=== PATIENT | male | born 1985 | race Caucasian/White ===

== ENCOUNTER 2025-02-22 15:06 | Emergency (ER) | payer BC, MEDICAID ==
[~2025-02-22] VITALS: Ht 177.8 cm; Wt 101.8 kg
[2025-02-22 15:47] LABS: MEAN PLATELET VOLUME 8.3 FL (7.4-10.4); RED CELL DISTRIBUTION WIDTH 13.8 % (11.5-14.5)
[2025-02-22 16:06] LABS: CREATININE 1.41 MG/DL (0.60-1.10); TOTAL CARBON DIOXIDE 25.0 MMOL/L (24-32); eCRCL 71 ML/MIN; eGFR 55 ML/MIN
--- NOTE | 2025-02-22 17:14 | Physician Documentation ---
History of Present Illness ~ Chief Complaint: Flank Pain Stated Complaint: ABD/BACK PAIN Time Seen by MD: 17:14 Primary Medical Doctor: none HPI 39-year-old male, presenting with urinary symptoms and flank pain He tells me that this morning when he woke up he was having some difficulty urinating. He felt like he had a frequent urge to go. He went to urgent Care, says they did a urinalysis and told him there was no infection. They gave him Flomax because they told him that it was probably an enlarged prostate. He has no history of an enlarged prostate or trouble with urination before Then later today he developed severe pain. He states that the pain is located in his right flank and radiates down to his right groin and testicles. It was so severe that he was nauseous and vomiting and sweating. He has never had any similar symptoms. No history of kidney stones. By time of my evaluation the symptoms have improved. He denies any significant pain at this time. He still feels like it is difficult to urinate. No fevers or other infectious symptoms Medication Reconciliation Allergies: Coded Allergies: No Known Allergies (Unverified , 03/21/09) Past Medical History Past Medical History: Anxiety Past Surgical History: no surgical history Lives with: Family Lives In: Home Occupation: employed Review of Systems Constitutional: Denies: fever Genitourinary: Reports: frequency, flank pain Physical Exam Vital Signs: Heart Rate: 118, Respiratory Rate: 18, BP: 167/105, Pulse Oximetry: 97, Weight: 101.820 Oxygen Flow Rate: 0 Physical Exam General: This is a pleasant and overall healthy-appearing young man, at bedside HEENT: Atraumatic, oropharynx is moist Heart: Mild tachycardic, appears regular Lungs: normal work of breathing, normal oxygen saturation on room air Abdomen: Soft, nondistended, nontender all quadrants including in the right lower quadrant and groin. Back: No CVA tenderness to percussion in the right Extremities: Warm and well-perfused Neuro: Alert and oriented Psychiatric: Calm and cooperative with exam Progress Results/Orders Results/Orders Completed Orders - EDELMIRA MARY MD Cbc/Diff (02/22/25 15:15) BMP (02/22/25 15:15) Lipase (02/22/25 15:15) CMP (02/22/25 15:15) Ua W/Microscopic, Cult If Ind (02/22/25 17:54) Vital Signs 02/22/25 02/22/25 02/22/25 15:11 17:31 17:39 Pulse 118 110 Resp 18 13 B/P (MAP) 167/105 154/105 (121) Pulse Ox 97 95 O2 Flow Rate 0 Laboratory Tests Test 02/22/25 15:32 02/22/25 17:54 White Blood Count 10.2 Red Blood Count 4.86 Hemoglobin 14.9 Hematocrit 42.6 Mean Corpuscular Volume 87.6 Mean Corpuscular Hemoglobin 30.6 Mean Corpuscular Hemoglobin Concent 34.9 Red Cell Distribution Width 13.8 Platelet Count 265 Mean Platelet Volume 8.3 Neutrophils (%) (Auto) 83.9 H Lymphocytes (%) (Auto) 12.2 L Monocytes (%) (Auto) 3.2 Eosinophils (%) (Auto) 0.1 Basophils (%) (Auto) 0.6 Neutrophils # (Auto) 8.5 H Lymphocytes # (Auto) 1.2 Monocytes # (Auto) 0.3 Eosinophils # (Auto) 0.0 Basophils # (Auto) 0.1 CBC Comment Sodium Level 139 Potassium Level 3.9 Chloride Level 104 Carbon Dioxide Level 25.0 Anion Gap 10 Blood Urea Nitrogen 15 Creatinine 1.41 H Estimated GFR/1.73 m2 55 BUN/Creatinine Ratio 10.6 Glucose Level 171 H Calcium Level 8.5 Total Bilirubin 0.5 Aspartate Amino Transf (AST/SGOT) 21 Alanine Aminotransferase (ALT/SGPT) 49 Alkaline Phosphatase 109 Total Protein 8.4 H Albumin 4.2 Globulin 4.2 Albumin/Globulin Ratio 1.0 L Lipase 37 Chemistry Comments Urine Specimen Description Non-specified Urine Color Yellow Urine Clarity Clear Urine pH 6.0 Urine Specific [place] 1.010 Urine Protein Negative Urine Glucose (UA) Negative Urine Ketones Negative Urine Occult Blood Large H Urine Nitrite Negative Urine Bilirubin Negative Urine Urobilinogen 0.2 Urine Leukocyte Esterase Negative Urine RBC 10-20 Urine WBC 0-4 Urine Squamous Epithelial Cells Few Urine Bacteria None seen Urine Mucus Few Urine Culture Indicated Not ind Volume Urine Centrifuged 10 ml Urine Comment Medical Decision Making Additional information obtaine: family Findings Further history obtained from the Diff Dx GI Bleed:Consideration: Include: Diverticulitis Diff Dx Pain:Considerations: Include: Urinary tract infection, Urolithiasis Diff Dx N/V/D:Considerations: Include: Urolithiasis Diff Dx Rectal:Considerations: Include: UTI Additional Comments The patient presents with urinary symptoms and severe flank pain. Per his history, this seems most likely to be a kidney stone. However, he currently is essentially asymptomatic, possibly indicating that he passed the stone. He still feels like it is difficult to urinate. Labs are unremarkable, except for kidney function possibly slightly elevated but no previous for comparison. Uri nalysis or hematuria but no infection. Later, the patient actually urinated the kidney stone out. Since he passed the stone, it seems reasonable for him to be discharged home with home care instructions for future stones. Departure Time of Disposition: 18:38 Disposition: 01 HOME / SELF CARE / HOMELESS Impression: Primary Impression: Renal colic Condition: Improved Discharge Instructions: Kidney Stones Referrals: NO PRIMARY CARE PROVIDER (PCP) Education Educated: Patient, Family Educated regarding: diagnosis, treatment, need for follow up Signature Scribe Signature: na Attestation: EDELMIRA Guadarrama MD Feb 22, 2025 17:14
[2025-02-22 17:31] VITALS: RESP 13
[2025-02-22 17:39] VITALS: BP 154/105; PULSE 110; O2SAT 95
[2025-02-22 18:08] LABS: LEUKOCYTE ESTERASE ,URINE NEGATIVE (Neg); NITRITES, URINE NEGATIVE (Neg); OCCULT BLOOD,URINE LARGE (Neg)
[2025-02-22 18:09] LABS: UA COLLECTION TYPE NON-SPECIFIED
[2025-02-22 18:13] LABS: SQUAMOUS EPITHELIAL CELL,UR FEW /LPF (FEW)
[2025-02-22 18:14] LABS: MUCUS STRANDS FEW /LPF (Neg)
[2025-02-22 19:06] VITALS: TEMP 98.4
== END 2025-02-22 19:07 | disposition home or self-care (01) ==
LOC: ER 15:07
DX: N23 Unspecified renal colic (principal); R11.2 Nausea with vomiting, unspecified; F41.9 Anxiety disorder, unspecified
CPT/HCPCS: 36415; 51798; 80053; 81001; 83690; 85025; 99284; J7030